=== PATIENT | female | born 1965 | race Caucasian/White ===

== ENCOUNTER 2020-04-16 10:51 | Emergency (ER) | payer SELFPAY ==
[~2020-04-16] VITALS: Ht 162.6 cm; Wt 79.5 kg
[~2020-04-16 10:51] MED LIST: ALBU18HF2 IH; ALBU6.7H9 INH; ATOM80CA PO; AZIT250T PO; CALCIUM PO; CYCL-1 PO; DICL100G15 TOP; IBUP-1985 PO; METH4TAB3 PO
[2020-04-16] MEDS ORDERED: ketorolac tromethamine 15mg/ml inj. IV ONE (11:20)
[2020-04-16 11:48] LABS: BASOPHILS % (AUTO) 0.8 % (0-1); EOSINOPHILS % (AUTO) 0.7 % (0-6); HEMOGLOBIN 13.6 g/dl (12.0-16.0); LYMPHOCYTES # (AUTO) 2.1 X10'3 (1.1-4.8); LYMPHOCYTES % (AUTO) 45.9 % (21-51); MEAN CORPUSCULAR HEMOGLOBIN 30.3 PG (27.0-31.0); MEAN CORPUSCULAR HGB CONC 33.1 g/dL (33.0-36.5); MEAN CORPUSCULAR VOLUME 91.5 FL (78-98); MEAN PLATELET VOLUME 8.5 FL (7.4-10.4); MONOCYTES # (AUTO) 0.3 X10'3 (0-0.9); NEUTROPHILS # (AUTO) 2.1 X10'3 (1.8-7.7); NEUTROPHILS % (AUTO) 46.6 % (42-75); PLATELET COUNT 303 X10'3 (140-440); RED BLOOD COUNT 4.48 X10'6 (4.20-5.60); RED CELL DISTRIBUTION WIDTH 13.6 % (11.5-14.5); WHITE BLOOD COUNT 4.6 X10'3 (4.5-11.0)
[2020-04-16 12:00] LABS: ALANINE AMINOTRANSFERASE 22 U/L (12-78); ALBUMIN 3.7 G/DL (3.4-5.0); ALBUMIN/GLOBULIN RATIO 1.2 (1.1-1.5); ALKALINE PHOSPHATASE 58 IU/L (46-116); ANION GAP 10 (8-16); ASPARTATE AMINO TRANSFERASE 24 U/L (10-37); BILIRUBIN,TOTAL 0.8 MG/DL (0.1-1.0); BLOOD UREA NITROGEN 12 MG/DL (7-18); BUN/CREATININE RATIO 12.8 (6.6-38.0); CALCIUM 8.6 MG/DL (8.5-10.1); CHLORIDE 107 MMOL/L (99-107); CREATININE 0.94 MG/DL (0.40-0.90); GLUCOSE 146 MG/DL (70-104); SODIUM 142 MMOL/L (135-145); TOTAL CARBON DIOXIDE 24.8 MMOL/L (24-32); TOTAL PROTEIN 6.7 G/DL (6.4-8.2); eGFR 62 ML/MIN
[2020-04-16 12:05] LABS: TROPONIN I < 0.04 NG/ML (0.0-0.05)
[2020-04-16 12:06] LABS: POTASSIUM 4.4 MMOL/L (3.5-5.1)
[2020-04-16 12:22] VITALS: BP 93/54
== END 2020-04-16 12:25 | disposition home or self-care (01) ==
LOC: ER 10:52
DX: R07.89 Other chest pain (principal); J45.909 Unspecified asthma, uncomplicated; G89.29 Other chronic pain; Z98.890 Other specified postprocedural states; Z79.2 Long term (current) use of antibiotics; Z88.5 Allergy status to narcotic agent
CPT/HCPCS: 36415; 80053; 84484; 85025; 93005; 96374; 99284; J1885

== ENCOUNTER 2020-04-26 09:49 | Emergency (ER) | payer BC ==
[~2020-04-26] VITALS: Ht 162.6 cm; Wt 79.5 kg
[2020-04-26 10:03] VITALS: BP 140/90
[2020-04-26] MEDS ORDERED: HYDROcodone/acetaminophen 5mg/325mg tablet PO ONE (11:15)
[2020-04-26] MEDS ORDERED: ondansetron 4mg rapidly disintigrating tab PO ONE (11:15)
== END 2020-04-26 12:13 | disposition home or self-care (01) ==
LOC: ER 09:50
DX: S62.031A Displaced fracture of proximal third of navicular [scaphoid] bone of right wrist, initial encounter for closed fracture (principal); M25.531 Pain in right wrist; J45.909 Unspecified asthma, uncomplicated; G89.29 Other chronic pain; F32.9 Major depressive disorder, single episode, unspecified; Z98.890 Other specified postprocedural states; Z72.89 Other problems related to lifestyle; Z79.2 Long term (current) use of antibiotics; Z79.899 Other long term (current) drug therapy; W18.39XA Other fall on same level, initial encounter; Y93.89 Activity, other specified; Y92.89 Other specified places as the place of occurrence of the external cause; Y99.8 Other external cause status
CPT/HCPCS: 29125; 73110; 99284